=== PATIENT | female | born 1990 | race Hispanic/Latino ===

== ENCOUNTER 2018-10-02 04:08 | Inpatient (IN) | payer OTHER ==
--- OUTSIDE RECORDS SUMMARY | 2018-10-02 04:11 | XMS REPORT | Continuity of Care Document ---
:1990 Author Organization Interface Problems Problem Status Onset Classification Date Comments Source Date Reported Discharge 02/27/2016 [place] Diagnosis: 6 Acute right flank pain URINARY Active [facility] SYMPTOMS 6 [place] Asthma Resolved Problem 02/27/2016 [facility] Medications Medication Details Route Status Patient Ordering Order Source Instructions Provider Date ibuprofen 600 600 mg=1 Active mg oral tablet tab, PO, 016 [place] Q8H, # 30 tab, 0 Refill(s) tramadol 50 mg=1 tab, Active hydrochloride PO, Q6H, X 5 016 [place] 50 MG Oral day, # 15 Tablet tab, 0 Refill(s) potassium 40 mEq, 2 Inactive chloride tab, Route: 016 [place] PO, Drug form: ERTAB, ONCE, Dosing Weight 100, kg, Priority: STAT, Start date: 02/24/16 17:04:00 CDT, Stop date: 02/24/16 17:04:00 CDTNotes: (Same as: K-Dur 20) "Do Not Crush" With food and full glass of water Morphine 4 mg, 1 mL, Inactive Route: IVP, Anitha Lau Drug form: INJ, ONCE, Dosing Weight 100, kg, Priority: STAT, Start date: 02/24/16 15:52:00 CDT, Stop date: 02/24/16 15:52:00 CDTNotes: (Same as:MORPhine Sulfate) Saline Flush 10 mL, Inactive 0.9% Route: IVP, 016 [place] Drug Form: INJ, Dosing Weight 100, kg, PRN, PRN Line Flush, Start date: 02/24/16 15:52:00 CDT, Duration: 30 day, Stop date: 03/25/16 15:51:00 CDTNotes: (Same as: BD Posiflush) Ondansetron 4 mg, 2 mL, Inactive Route: IVP, 016 [place] Drug form: INJ, ONCE, Dosing Weight 100, kg, Priority: STAT, Start date: 02/24/16 15:52:00 CDT, Stop date: 02/24/16 15:52:00 CDTNotes: (Same as: Zofran) MEDICATION WASTE Product Size: 4 mg Product Wasted: ___ mg Allergies, Adverse Reactions, Alerts Substance Category Reaction Severity Reaction Status Date Comments Source type Reported Immunizations Immunization Date Given Site Status Last Updated Comments Source Results Order Name Results Value Reference Date Interpretation Comments Source Range CHEM PANEL Albumin Lvl 3.8 g/dL 3.5 - 5.0 02/23 [facility] CHEM PANEL Alk Phos 78 unit/L 39 - 136 02/23 [facility] CHEM PANEL Sodium Lvl 139 meq/L 135 - 145 02/23 [facility] CHEM PANEL ALANINE 21 unit/L 0 - 65 02/23 AMINOTRANS [facility] RASE CHEM PANEL Total 8.1 g/dL 6.4 - 8.4 02/23 Protein [facility] CHEM PANEL ASPARTATE 12 unit/L 0 - 37 02/23 TRANSAMINASE [facility] CHEM PANEL Bili Total 0.4 mg/dL 0.2 - 1.3 02/23 [facility] CHEM PANEL Glucose Lvl 90 mg/dL 70 - 99 02/23 [facility] CHEM PANEL BUN 5 mg/dL 7 - 22 02/23 [facility] CHEM PANEL Creatinine 0.64 mg/dL 0.50 - 02/23 Lvl 1.40 [facility] CHEM PANEL Calcium Lvl 8.3 mg/dL 8.5 - 10.5 02/23 [facility] CHEM PANEL Potassium 3.3 meq/L 3.5 - 5.1 02/23 Lvl [facility] CHEM PANEL Chloride Lvl 107 meq/L 95 - 109 02/23 [facility] CHEM PANEL CO2 26 meq/L 24 - 32 02/23 [facility] CHEM PANEL eGFR 125 02/23 Result Comment: The eGFR is calculated using the CKD-EPI formula. In most young, healthy individuals the eGFR will be >90 mL/ min/1.73m2. The eGFR declines with age. An eGFR of 60-89 may be normal in [place] mL/min/1. some populations, particularly the elderly, for whom the CKD-EPI formula has not been extensively validated. Use of the eGFR is not recommended in the following populations: [address] Individuals with unstable creatinine concentrations, including patients and those with serious co-morbid conditions. Patients with extremes in muscle mass or diet. The data above are obtained from the National Kidney Disease Education Program (NKDEP) which additionally recommends that when the eGFR is used in patients with extremes of body mass index for purposes of drug dosing, the eGFR should be multiplied by the estimated BMI. CHEM PANEL B/C Ratio 8 6 - 25 02/23 [facility] CHEM PANEL AGAP 9.3 meq/L 10.0 - 02/23 20.0 [facility] CHEM PANEL A/G Ratio 0.9 0.7 - 1.6 02/23 [facility] CHEM PANEL Globulin 4.3 g/dL 2.0 - 4.0 02/23 [facility] ENDOCRINOLO S Preg Negative Negative 02/23 GY [facility] *NA* (02/24/16 4:03 PM) HEMATOLOGY Monocytes 9.6 % 2.0 - 12.0 02/23 [facility] HEMATOLOGY Segs-Bands # 6.6 K/CMM 1.5 - 8.1 02/23 [facility] HEMATOLOGY Basophils 0.2 % 0.0 - 1.0 02/23 [facility] HEMATOLOGY Lymphocytes 1.0 K/CMM 1.0 - 5.5 02/23 # /2015 [facility] HEMATOLOGY Eosinophils 0.3 % 0.0 - 4.0 02/23 [facility] HEMATOLOGY Monocytes # 0.8 K/CMM 0.0 - 0.8 02/23 [facility] HEMATOLOGY Microcyte 1+ None Seen 02/23 [facility] *ABN* (02/24/16 4:03 PM) HEMATOLOGY Lymphocytes 11.5 % 20.0 - 02/23 MH 40.0 [facility] HEMATOLOGY Segs 78.4 % 45.0 - 02/23 MH 75.0 [facility] HEMATOLOGY RBC X 10x6 4.84 M/CMM 4.20 - 07 MH 5.40 [facility] HEMATOLOGY WBC X 10x3 8.5 K/CMM 3.7 - 10.4 02/23 [facility] HEMATOLOGY MCV 75.6 fL 80.0 - 02/23 MH 98.0 [facility] HEMATOLOGY Hct 36.6 % 36.0 - 02/23 MH 48.0 [facility] HEMATOLOGY MCH 23.6 pg 27.0 - 02/23 MH 31.0 [facility] HEMATOLOGY Hgb 11.4 g/dL 12.0 - 02/23 MH 16.0 [facility] HEMATOLOGY MCHC 31.2 g/dL 32.0 - 02/23 MH 36.0 [facility] HEMATOLOGY RDW 15.6 % 11.5 - 02/23 MH 14.5 [facility] HEMATOLOGY MPV 9.4 fL 7.4 - 10.4 02/23 [facility] HEMATOLOGY Platelet 239 K/CMM 133 - 450 02/23 [facility] URINE AND UA WBC 3-5 /HPF None Seen 02/23 STOOL /HPF [facility] URINE AND UA RBC 6-10 /HPF 0 - 2 02/23 [facility] URINE AND UA pH 7.0 5.0 - 8.0 02/23 [facility] URINE AND UA Spec Grav 1.015 <=1.030 02/23 [facility] URINE AND UA Turbidity Clear Clear 02/23 [facility] (02/24/16 4:03 PM) URINE AND UA Color Yellow Yellow 02/23 [facility] *NA* (02/24/16 4:03 PM) URINE AND UA Bacteria Occasional None Seen 02/23 STOOL /HPF /HPF [facility] URINE AND UA Bili Negative Negative 02/23 [facility] *NA* (02/24/16 4:03 PM) URINE AND UA Ketones Negative Negative 02/23 [facility] *NA* (02/24/16 4:03 PM) URINE AND UA Glucose Negative Negative 02/23 [facility] (02/24/16 4:03 PM) URINE AND UA Nitrite Negative Negative 02/23 [facility] (02/24/16 4:03 PM) URINE AND UA Protein Negative Negative 02/23 [facility] (02/24/16 4:03 PM) URINE AND UA Sq Epi Occasional Few /LPF 02/23 STOOL /LPF /2015 [facility] URINE AND UA Leuk Est Small Negative 02/23 STOOL [facility] *ABN* (02/24/16 4:03 PM) URINE AND UA 0.2 EU/dL 0.1 - 1.0 02/23 [facility] Urobilinogen /2015 [facility] URINE AND UA Blood Moderate Negative 02/23 STOOL [facility] *ABN* (02/24/16 4:03 PM) URINE CHEM U Preg Negative Negative 02/23 [facility] (02/24/16 4:03 PM) Renal Stone Renal Stone CT SCAN OF THE ABDOMEN [<AND PELVIS>] WITHOUT CONTRAST. 02/23 [facility] /2015 [facility] HX: Clinical Indication: Flank Pain; right flank, Izaiah LQ pain. Comparison: None Read by: Pato Hawk MD Dictated Date/time: 02/24/16 17:49 Electronically Signed by: Pato Hawk MD 02/24/16 17:51 FINAL REPORT Technique: Helical CT images were obtained from the domes the diaphragms to the symphysis pubis without the administration of oral or intravenous contrast. The lack of IV contrast lowers the sensitivity for diagnostic evaluation. ABDOMEN AND PELVIS: The lung bases are clear. The heart is normal in size. Anemia. Grossly normal gallbladder. The unenhanced liver, spleen, pancreas , and adrenals are normal in appearance. Grossly nor mal appendix. The gastrointestinal structures are unremarkable. No abdominal masses, adenopathy, ascites, or fluid collections are seen. No renal or ureteral calculi or hydronephrosis. No significant perinephric stranding detected. The bladder is nondistended with thickened wall. Prominent uterus. Bilateral L4-L5 pars defect are present. IMPRESSION: 1. No definite obstructive uropathy detected. 2. Grossly normal appendix. SL: [id number] Vital Signs Vital Sign Value Date Comments Source Heart Rate 88 2016 [facility] Systolic (mm Hg) 124 2016 [facility] Diastolic (mm Hg) 86 2016 [facility] Respitory Rate 16 2016 [facility] Temperature Oral (F) 98.4 F 2016 [facility] Systolic (mm Hg) 124 2016 [facility] Diastolic (mm Hg) 80 2016 [facility] Respitory Rate 18 2016 [facility] Heart Rate 88 2016 [facility] Temperature Oral (F) 98.6 F 2016 [facility] Heart Rate 97 2016 [facility] Weight 100 2016 [facility] Temperature Oral (F) 99.5 F 2016 [facility] Respitory Rate 16 2016 [facility] Systolic (mm Hg) 132 2016 [facility] Diastolic (mm Hg) 82 2016 [facility] Encounters Location Location Encounter Encounter Reason Attending ADM DC Status Source Details Type Number For Provider Date Date Visit [facility] [id number] Lydia 02/23 02/23 [facility] [place] /2015 [facility] Procedures Procedure Code Date Perfomer Comments Source
[2018-10-02] MEDS ORDERED: PENICILLIN 5 MU in NA CHLORIDE 0.9% 100 ML IV ONE (04:37)
[2018-10-02] MEDS ORDERED: CARBOPROST TROME 250 MCG/ML IM PRN (04:37)
[2018-10-02] MEDS ORDERED: METHYLERGONOVINE 0.2MG/ML AMP IM PRN (04:37)
[2018-10-02] MEDS ORDERED: PROMETHAZINE 25 MG/ML VIAL IV PRN (04:37)
[2018-10-02] MEDS ORDERED: Ringers Lactate 1,000 ML IV PRN (04:37)
[2018-10-02] MEDS ORDERED: OXYTOCIN/LR 20 UNITS/1,000 ML BAG IV SCH (05:00)
[2018-10-02] MEDS ORDERED: Ringers Lactate 1,000 ML IV SCH (05:00)
[2018-10-02] MEDS ORDERED: PENICILLIN 2.5 MU in NA CHLORIDE 0.9% 100 ML IV SCH (05:00)
[2018-10-02 05:02] LABS: RPR Titer ND
[2018-10-02 05:05] LABS: Absolute Lymphocytes (CBC) 1.8 K/uL (0.7-4.9); Absolute Monocytes 0.7 K/uL (0.1-1.3); Absolute Neutrophil 5.1 K/uL (1.8-8.0); Basophils % 0.2 % (0-1.3); Eosinophils % 0.8 % (0-4.4); Hematocrit 33.1 % (36.0-45.0); Lymphocytes % 23.9 % (15.3-44.8); MPV 11.8 fL (7.6-11.3); Monocytes % 9.1 % (3.3-12.3); RBC Red Blood Cell Count 4.11 M/uL (3.86-4.86)
[2018-10-02 05:07] LABS: Urine Appearance CLOUDY; Urine Bilirubin NEGATIVE (NEG); Urine Blood NEGATIVE (NEG); Urine Color YELLOW; Urine Glucose NEGATIVE (NEG); Urine Microscopic Reflex ORDER UMIC; Urine Protein NEGATIVE (NEG); Urine pH 5.5 (5.0-7.0)
[2018-10-02 05:22] LABS: Urine Bacteria >50 /HPF (<20); Urine Culture Reflex Order NOT NEEDED; Urine RBC NONE SEEN /HPF (NONE SEEN)
[2018-10-02 05:23] VITALS: BMI 36.6
[2018-10-02] MEDS ORDERED: INFLUENZA VACCINE (for 3y+) 0.5 ML DOSE IMVAC ONE (08:00)
--- NOTE | 2018-10-02 08:41 | RAD REPORT ---
EXAM DESCRIPTION: US - OB Limited - 10/02/2018 7:38 am CLINICAL HISTORY: presentation age. COMPARISON: OB Complete dated 07/26/2018 FINDINGS: Examination was limited to presentation per referring physician request. A single cephalic presenting gestation is identified.
--- NOTE | 2018-10-02 09:23 | PREOPHP ---
Date of Admission: 10/02/2018 Ms. Shen is a 28-year-old 3, para 2, 39 weeks, for induction. Full pros and cons of this dis cussed prior to admission. She is Rh positive, immune to Rubella, positive beta strep screen, has be en started on antibiotics. However, on pelvic exam this morning, I cannot tell the position of the b hillary and it is extremely high. I have a feeling that baby could be breech. We have stopped Pitocin a nd will get an immediate imaging either x-ray or ultrasound to determine position of the baby. If th e baby is breech, this has already been discussed with the patient that either we will send her home and wait to see if spontaneous rotation occurs or proceed with or talk about transfer to an other facility for rotation attempt. Full discussion. Apparently, no exam has been done prior to th is point even though Pitocin was started. LUANN/TAYLOR Voice ID: [id number]
[2018-10-02] MEDS ORDERED: FENTANYL CITR 100 MCG/2 ML IV ONE (09:51)
[2018-10-02] MEDS ORDERED: ROPIVACAINE HCL 100 ML IV PRN (09:51)
[2018-10-02] MEDS ORDERED: ROPIVACAINE HCL 2 MG/ML 100ML IV ONE (09:53)
[2018-10-02] MEDS ORDERED: ROPIVACAINE HCL 20 ML ONE (10:12)
[2018-10-02 11:28] LABS: Barbiturates NEGATIVE (NEGATIVE); Benzodiazepines NEGATIVE (NEGATIVE); Cocaine NEGATIVE (NEGATIVE); METHAMPHETAM NEGATIVE (NEGATIVE); Methadone NEGATIVE (NEGATIVE); Opiates NEGATIVE (NEGATIVE); Phencyclidine NEGATIVE (NEGATIVE); THC Cannibis NEGATIVE (NEGATIVE)
[2018-10-02] MEDS ORDERED: ACETAMINOPHEN 500 MG TAB PO PRN (13:28)
[2018-10-02] MEDS ORDERED: Tdap (Diph,Pertuss(Acell),Tet Vac) 0.5 ML SYR IMVAC ONE (13:28)
[2018-10-02] MEDS ORDERED: DOCUSATE NA/SENNA CONC 1 TAB PO PRN (13:28)
[2018-10-02] MEDS ORDERED: Oxycodone HCl/Acetaminophen 1 TAB TAB PO PRN (13:28)
[2018-10-02] MEDS ORDERED: IBUPROFEN 200 MG TAB PO PRN (13:28)
[2018-10-02] MEDS ORDERED: ONDANSETRON 4 MG (ODT) TAB PO PRN (13:28)
[2018-10-02] MEDS: Oxycodone HCl/Acetaminophen 1 TAB TAB PO PRN ×2 (17:03→23:50)
--- NOTE | 2018-10-02 23:32 | OP ---
Surgeon: Lukas Yeager MD Hospital Course: A 28-year-old 3, para 2, 39 weeks, followed antepartum, noted to have galls tones, also was positive for beta strep. On admission, it was very high. Ultrasound demonstrated ba by was vertex. On re-examination 15 to 20 minutes later, baby was lower, rupture of membranes, clear fluid. The patient went into an active labor pattern. Subsequently, requested and received epidura l, which gave excellent benefit during remainder of labor and delivery. Second stage of 15 to 20 min utes. Spontaneous vaginal delivery of an estimated [id number] male . Apgars 9 and 9. A jaida e knot in the cord, but not tight. Germain delivery of the placenta, which was inspected and noted t o be intact and normal. First-degree laceration repair with 2-0 chromic. Mild uterine hypotonus, 0. 2 mg of Methergine, massage and IV drip Pitocin. Estimated blood loss 400, possibly 450 cc or less. Penicillin prophylaxis times at least twice during the labor. The patient tolerated all procedures well. Final Diagnoses: 1.Term intrauterine at 39 weeks. 2.Vaginal delivery. 3.True knot in the cord. 4.Epidural anesthesia. 5.Penicillin prophylaxis. 6.Mild hypotonus. NBC/MODL Voice ID: [id number] Report ID: [id number]
[2018-10-03 04:14] LABS: RPR (Rapid Plasma Reagin) NON-REACT (NON-REACT)
[2018-10-03] MEDS: Oxycodone HCl/Acetaminophen 1 TAB TAB PO PRN ×2 (06:08→11:05)
[2018-10-03] MEDS ORDERED: DIPHENHYDRAMINE 25 MG TAB/CAP PO PRN (07:19)
[2018-10-03] MEDS ORDERED: Tdap (Diph,Pertuss(Acell),Tet Vac) 0.5 ML SYR IMVAC ONE (07:21)
[2018-10-03 11:26] VITALS: BP 130/75; TEMP 98.2
--- NOTE | 2018-10-06 15:39 | PN ---
The patient's ultrasound shows baby vertex. On re-exam, baby is indeed vertex. She is good 3 and lucio f to 4 cm. Baby is better applied to the cervix than it was on my first exam. With fundal pressure, rupture of the membranes was performed and we let the fluid drain out with finger in place to assure baby was applied to the cervix until the baby was well applied. Clear fluid. FHTs normal, reactive. Anticipate more rapid progress from this point forward. LUANN/TAYLOR Voice ID: [id number] Report ID: [id number]
--- NOTE | 2018-10-06 15:51 | DS ---
Date of Discharge: 10/03/2018 Hospital Course: A 28-year-old female, 3, para 2, 39 weeks, delivered uneventfully of a 7-po und 13-ounces male infant, Apgars 9 and 9. Small first-degree laceration repaired with 2-0 chromic. Epidural anesthesia, which gave excellent benefit. Germain delivery of the placenta, which was insp ected and noted to be intact and normal. Mild uterine hypotonus; 0.2 mg of Methergine IM, IV drip Pi tocin and massage. Estimated blood loss 400 cc. Rh positive, immune to Rubella. Positive beta stre p screen. The patient received penicillin prophylaxis during the labor. afebrile, ambula ting and voiding. Lochia is normal. Will be dismissed later today. To report back to my office in 6 weeks for followup. To report any temperature elevation of 100 degrees or greater, severe pain, he titi bleeding, or any other type of abnormalities. Has some mild pruritus, for which she will be give n Benadryl. This is no doubt result of the epidural. No other problems reported. She has not had h er Tdap immunization. Has agreed to get this before she leaves. Dismissed with tramadol for analges ia, although she may elect to take Motrin instead. Will be . Final Diagnoses: 1.Term intrauterine . 2.Vaginal delivery. 3.Epidural anesthesia. 4.Mild uterine hypertonicity. 5.True knot in the cord, loose. 6.Penicillin prophylaxis. 7.Tdap offered. LUANN/TAYLOR Voice ID: [id number] Report ID: [id number]
[2018-10-07 03:12] LABS: HBsAG Nonreactive (Nonreactive)
== END 2018-10-03 14:30 | disposition home or self-care (01) | DRG 807 ==
LOC: 2ND-WC 04:08
PROVIDERS: ADMIT Specialist; ATTEND Specialist
PROC: 10E0XZZ Delivery of Products of Conception, External Approach (ICD-10-PCS; principal; 2018-10-02)
PROC: 10907ZC Drainage of Amniotic Fluid, Therapeutic from Products of Conception, Via Natural or Artificial Opening (ICD-10-PCS; 2018-10-02)
DX: O99.824 Streptococcus B carrier state complicating childbirth (principal); Z37.0 Single live birth; O69.2XX0 Labor and delivery complicated by other cord entanglement, with compression, not applicable or unspecified; O70.0 First degree perineal laceration during delivery; O62.0 Primary inadequate contractions; O99.62 Diseases of the digestive system complicating childbirth; K80.20 Calculus of gallbladder without cholecystitis without obstruction; O99.72 Diseases of the skin and subcutaneous tissue complicating childbirth; Z3A.39 39 weeks gestation of pregnancy
CPT/HCPCS: 36415; 76815; 80307; 81003; 81015; 85025; 86592; 86850; 86900; 86901; 87340; 90715; J2210; J2590; J2795; J3010

== ENCOUNTER 2019-02-14 12:49 | Emergency (ER) | payer OTHER, SELFPAY ==
--- OUTSIDE RECORDS SUMMARY | 2019-02-14 12:52 | XMS REPORT | Continuity of Care Document ---
:1990 Author Organization [facility] Care Team Providers Name Role Phone E-Generator Information [employer] Unavailable Unavailable Problems Problem Status Onset Classification Date Comments Source Date Reported Discharge 02/27/2016 [place] Diagnosis: 6 Acute right flank pain URINARY Active [facility] SYMPTOMS 6 [place] Asthma Resolved Problem 02/27/2016 [place] Medications Medication Details Route Status Patient Ordering Order Source Instructions Provider Date ibuprofen 600 600 mg=1 Active mg oral tablet tab, PO, 016 [place] Q8H, # 30 tab, 0 Refill(s) tramadol 50 mg=1 tab, Active hydrochloride PO, Q6H, X 5 016 [place] 50 MG Oral day, # 15 Tablet tab, 0 Refill(s) potassium 40 mEq, 2 Inactive chloride tab, Route: 016 [place] PO, Drug form: ERTAB, ONCE, Dosing Weight 100, kg, Priority: STAT, Start date: 02/24/16 17:04:00 CDT, Stop date: 02/24/16 17:04:00 CDTNotes: (Same as: K-Dur 20) "Do Not Crush" With food and full glass of water Morphine 4 mg, 1 mL, Inactive Route: IVP, Anitha [place] Drug form: INJ, ONCE, Dosing Weight 100, kg, Priority: STAT, Start date: 02/24/16 15:52:00 CDT, Stop date: 02/24/16 15:52:00 CDTNotes: (Same as:MORPhine Sulfate) Saline Flush 10 mL, Inactive 0.9% Route: IVP, 016 [place] Drug Form: INJ, Dosing Weight 100, kg, PRN, PRN Line Flush, Start date: 02/24/16 15:52:00 CDT, Duration: 30 day, Stop date: 03/25/16 15:51:00 CDTNotes: (Same as: BD Posiflush) Ondansetron 4 mg, 2 mL, Inactive Route: IVP, 016 [place] Drug form: INJ, ONCE, Dosing Weight 100, kg, Priority: STAT, Start date: 02/24/16 15:52:00 CDT, Stop date: 02/24/16 15:52:00 CDTNotes: (Same as: Zofran) MEDICATION WASTE Product Size: 4 mg Product Wasted: ___ mg Allergies, Adverse Reactions, Alerts No Known Medication Allergies Immunizations No Data Provided for This Section Results Order Name Results Value Reference Date Interpretation Comments Source Range CHEM PANEL Albumin Lvl 3.8 3.5 - 5.0 02/23 [place] CHEM PANEL Alk Phos 78 39 - 136 02/23 [place] CHEM PANEL Sodium Lvl 139 135 - 145 02/23 [place] CHEM PANEL ALANINE 21 0 - 65 02/23 AMINOTRANS [place] RASE CHEM PANEL Total 8.1 6.4 - 8.4 02/23 Protein [place] CHEM PANEL ASPARTATE 12 0 - 37 02/23 TRANSAMINASE [place] CHEM PANEL Bili Total 0.4 0.2 - 1.3 02/23 [place] CHEM PANEL Glucose Lvl 90 70 - 99 02/23 [place] CHEM PANEL BUN 5 7 - 22 02/23 [place] CHEM PANEL Creatinine 0.64 0.50 - 02/23 MH Lvl 1.40 [place] CHEM PANEL Calcium Lvl 8.3 8.5 - 10.5 02/23 [place] CHEM PANEL Potassium 3.3 3.5 - 5.1 02/23 MH Lvl [place] CHEM PANEL Chloride Lvl 107 95 - 109 02/23 [place] CHEM PANEL CO2 26 24 - 32 02/23 [place] CHEM PANEL eGFR 125 02/23 [facility] Comment: The [place] eGFR is calculated using the CKD-EPI formula. In most young, healthy individuals the eGFR will be >90 mL/min/1.73m2 . The eGFR declines with age. An eGFR of 60-89 may be normal in some populations, particularly the elderly, for whom the CKD-EPI formula has not been extensively validated. Use of the eGFR is not recommended in the following populations:< br/>
Amarilis viduals with unstable creatinine concentration s, including patients and those with serious co-morbid conditions.<b r/>
Patie nts with extremes in muscle mass or diet.

The data above are obtained from the National Kidney Disease Education Program (NKDEP) which additionally recommends that when the eGFR is used in patients with extremes of body mass index for purposes of drug dosing, the eGFR should be multiplied by the estimated BMI. CHEM PANEL B/C Ratio 8 6 - 25 02/23 [place] CHEM PANEL AGAP 9.3 10.0 - 02/23 MH 20.0 [place] CHEM PANEL A/G Ratio 0.9 0.7 - 1.6 02/23 [place] CHEM PANEL Globulin 4.3 2.0 - 4.0 02/23 [place] ENDOCRINOLO S Preg Negative Negative 02/23 GY *NA* /2015 [place] (02/24/16 4:03 PM) HEMATOLOGY Monocytes 9.6 2.0 - 12.0 02/23 [place] HEMATOLOGY Segs-Bands # 6.6 1.5 - 8.1 02/23 [place] HEMATOLOGY Basophils 0.2 0.0 - 1.0 02/23 [place] HEMATOLOGY Lymphocytes 1.0 1.0 - 5.5 02/23 MH # /2015 [place] HEMATOLOGY Eosinophils 0.3 0.0 - 4.0 02/23 [place] HEMATOLOGY Monocytes # 0.8 0.0 - 0.8 02/23 [place] HEMATOLOGY Microcyte 1+ None Seen 02/23 [facility] *ABN* /2015 [place] (02/24/16 4:03 PM) HEMATOLOGY Lymphocytes 11.5 20.0 - 02/23 MH 40.0 [place] HEMATOLOGY Segs 78.4 45.0 - 02/23 MH 75.0 [place] HEMATOLOGY RBC X 10x6 4.84 4.20 - 02/23 MH 5.40 [place] HEMATOLOGY WBC X 10x3 8.5 3.7 - 10.4 02/23 [place] HEMATOLOGY MCV 75.6 80.0 - 02/23 MH 98.0 [place] HEMATOLOGY Hct 36.6 36.0 - 02/23 MH 48.0 /2015 [place] HEMATOLOGY MCH 23.6 27.0 - 02/23 MH 31.0 /2015 [place] HEMATOLOGY Hgb 11.4 12.0 - 02/23 MH 16.0 [place] HEMATOLOGY MCHC 31.2 32.0 - 02/23 MH 36.0 /2015 [place] HEMATOLOGY RDW 15.6 11.5 - 02/23 MH 14.5 /2015 [place] HEMATOLOGY MPV 9.4 7.4 - 10.4 02/23 [place] HEMATOLOGY Platelet 239 133 - 450 02/23 [place] URINE AND UA WBC 3-5 /HPF None Seen 02/23 STOOL /HPF /2015 [place] URINE AND UA RBC 6-10 /HPF 0 - 2 02/23 STOOL [place] URINE AND UA pH 7.0 5.0 - 8.0 02/23 STOOL /2015 [place] URINE AND UA Spec Grav 1.015 <=1.030 02/23 STOOL [place] URINE AND UA Turbidity Clear Clear 02/23 [facility] (02/24/16 4:03 PM) [place] URINE AND UA Color Yellow Yellow 02/23 STO[facility] *NA* /2015 [place] (02/24/16 4:03 PM) URINE AND UA Bacteria Occasional None Seen 02/23 STOOL /HPF /HPF [place] URINE AND UA Bili Negative Negative 02/23 STOOL *NA* /2015 [place] (02/24/16 4:03 PM) URINE AND UA Ketones Negative Negative 02/23 STO[facility] *NA* /2015 [place] (02/24/16 4:03 PM) URINE AND UA Glucose Negative Negative 02/23 [facility] (02/24/16 4:03 PM) [place] URINE AND UA Nitrite Negative Negative 02/23 [facility] (02/24/16 4:03 PM) [place] URINE AND UA Protein Negative Negative 02/23 [facility] (02/24/16 4:03 PM) [place] URINE AND UA Sq Epi Occasional Few /LPF 02/23 STOOL /LPF /2015 [place] URINE AND UA Leuk Est Small Negative 02/23 STO[facility] *ABN* /2015 [place] (02/24/16 4:03 PM) URINE AND UA 0.2 0.1 - 1.0 02/23 [facility] Urobilinogen /2015 [place] URINE AND UA Blood Moderate Negative 02/23 STO[facility] *ABN* /2015 [place] (02/24/16 4:03 PM) URINE CHEM U Preg Negative Negative 02/23 (02/24/16 4:03 PM) [place] Pathology Reports No Data Provided for This Section Diagnostic Reports Report Value Date Source Renal Stone CT CT SCAN OF THE ABDOMEN [<AND PELVIS>] WITHOUT CONTRAST. 2015 [facility] HX: Clinical Indication: Flank Pain; right flank, Izaiah LQ pain. Comparison: None Technique: Helical CT images were obtained from the domes the diaphragms to the symphysis pubis without the administration of oral or intravenous contrast. The lack of IV contrast lowers the sensitivity for diagnostic evaluation. ABDOMEN AND PELVIS: The lung bases are clear. The heart is normal in size. Anemia. Grossly normal gallbladder. The unenhanced liver, spleen, pancreas, and adrenals are normal in appearance. Grossly [...] uropathy detected. 2. Grossly normal appendix. SL: [id number] Consultation Notes No Data Provided for This Section Discharge Summaries No Data Provided for This Section History and Physicals No Data Provided for This Section Vital Signs Vital Sign Value Date Comments Source Heart Rate 88 2016 [facility] Systolic (mm Hg) 124 2016 [facility] Diastolic (mm Hg) 86 2016 [facility] Respitory Rate 16 2016 [facility] Temperature Oral (F) 98.4 F 2016 [facility] Systolic (mm Hg) 124 2016 [facility] Diastolic (mm Hg) 80 2016 [facility] Respitory Rate 18 2016 [facility] Heart Rate 88 2016 [facility] Temperature Oral (F) 98.6 F 2016 [facility] Heart Rate 97 2016 [facility] Weight 100 2016 [facility] Temperature Oral (F) 99.5 F 2016 [facility] Respitory Rate 16 2016 [facility] Systolic (mm Hg) 132 2016 [facility] Diastolic (mm Hg) 82 2016 [facility] Encounters Location Location Encounter Encounter Reason Attending ADM DC Status Source Details Type Number For Provider Date Date Visit [facility] [id number] Lydia 02/23 02/23 [place] [facility] [place] /2015 [facility] Procedures No Data Provided for This Section Assessment and Plan No Data Provided for This Section Plan of Care No Data Provided for This Section Social History Social History Date Source Social History TypeResponse 2016 [facility] Smoking Status Current every day smoker; Exposure to Tobacco Smoke None; Cigarette Smoking Last 365 Days Yes; Reg Smoking Cessation Counseling Yes Family History No Data Provided for This Section Advance Directives No Data Provided for This Section Functional Status No Data Provided for This Section
[2019-02-14 13:41] LABS: Absolute Lymphocytes (CBC) 0.9 K/uL (0.7-4.9); Basophils % 0.4 % (0-1.3); Eosinophils % 0.4 % (0-4.4); Hematocrit 37.3 % (36.0-45.0); Lymphocytes % 11.6 % (15.3-44.8); MPV 9.7 fL (7.6-11.3); Monocytes % 10.8 % (3.3-12.3); RBC Red Blood Cell Count 4.88 M/uL (3.86-4.86)
[2019-02-14 13:57] LABS: BUN Blood Urea Nitrogen 8 mg/dL (7-18); Bicarbonate 23 mmol/L (21-32); Glucose Level 100 mg/dL (74-106); Potassium 3.7 mmol/L (3.5-5.1); Sodium Level 138 mmol/L (136-145)
--- NOTE | 2019-02-14 14:45 | RAD REPORT ---
EXAM DESCRIPTION: US - Transvaginal Study Probe - 02/14/2019 2:29 pm CLINICAL HISTORY: N Pelvic pain. COMPARISON: No comparisons FINDINGS: The uterus is normal in size, shape and echotexture. The uterus measures 8.0 x 5.7 x 5.8 c m. IUD is present in the endometrial canal however appears low in position at the level the midbody. Both ovaries are normal in size, shape and echotexture. The right ovary measures 3.2 x 2.5 x 1.9 cm. The left ovary measures 2.8 x 1.3 x 1.0 cm. No ovarian or parovarian lesions. No adnexal masses. Normal Doppler blood flow was demonstrated to both ovaries. No significant pelvic ascites. IMPRESSION: IUD appears low in position within the endometrial canal.
[2019-02-14] MEDS ORDERED: HYDROCODONE/APAP 5/325 MG TAB ONE (15:47)
--- NOTE | 2019-02-14 16:47 | EDPHYS ---
Physician Documentation [facility] Name: Paige Shen Age: 28 yrs Sex: Female : 1990 Arrival Date: 02/14/2019 Time: 12:52 Bed 24 Private MD: ED Physician Gonzalez Leonard HPI: 02/14 13:07 This 28 yrs old Female presents to ER via Ambulatory with complaints of jmm Vaginal Bleeding. 13:07 Onset: The symptoms/episode began/occurred gradually, 3 month(s) ago. Modifying jmm factors: The symptoms are alleviated by nothing, the symptoms are aggravated by nothing. Associated signs and symptoms: Pertinent positives: pelvic pain, Pertinent negatives: fever. This is a 28 year old female with no chronic medical conditions that presents to the ED with complaints of vaginal spotting over the past 3 months since IUD placement. Patient states she developed blood clots today with pelvic pain. Denies fever, denies vaginal discharge. . 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 - Social history:: Smoking status: Patient/guardian denies using tobacco. - Ebola Screening: : Patient negative for fever greater than or equal to 101.5 degrees Fahrenheit, and additional compatible Ebola Virus Disease symptoms Patient denies exposure to infectious person Patient denies travel to an Ebola-affected area in the 21 days before illness onset No symptoms or risks identified at this time. ROS: 13:07 Constitutional: Negative for fever, chills, and weight loss, Cardiovascular: Negative jmm for chest pain, palpitations, and edema, Respiratory: Negative for shortness of breath, cough, wheezing, and pleuritic chest pain. 13:07 : Positive for vaginal bleeding, pelvic pain. 13:07 All other systems are negative. Exam: 13:07 Constitutional: This is a well developed, well nourished patient who is awake, alert, jmm and in no acute distress. Head/Face: atraumatic. Eyes: EOMI, no conjunctival erythema appreciated ENT: Moist Mucus Membranes Neck: Trachea midline, Supple Chest/axilla: Normal chest wall appearance and motion. Cardiovascular: Regular rate and rhythm. No edema appreciated Respiratory: Normal respirations, no respiratory distress appreciated Abdomen/GI: Non distended, soft 13:07 Skin: General appearance color normal MS/ Extremity: Moves all extremities, no obvious deformities appreciated, no edema noted to the lower extremities Neuro: Awake and alert, normal gait Psych: Behavior is normal, Mood is normal, Patient is cooperative and pleasant 13:07 : Pelvic Exam: External exam: is normal, Speculum exam: mild bleeding, os that is closed. Vital Signs: 12:56 BP 127 / 77; Pulse 88; Resp 16; Temp 98.7(TE); Pulse Ox 100% ; Weight 81.65 kg; Height hj 5 ft. 4 in. (162.56 cm); Pain 9/10; 15:40 BP 113 / 76; Pulse 65; Resp 16; Pulse Ox 98% on R/A; Pain 7/10; iw 12:56 Body Mass Index 30.90 (81.65 kg, 162.56 cm) hj MDM: 13:28 Patient medically screened. [facility] 16:36 Data reviewed: vital signs, nurses notes. Counseling: I had a detailed discussion with [facility] the patient and/or guardian regarding: the historical points, exam findings, and any diagnostic results supporting the discharge/admit diagnosis, radiology results, the need for outpatient follow up, to return to the emergency department if symptoms worsen or persist or if there are any questions or concerns that arise at home. 16:36 ED course: IUD string noted. Minimal bleeding appreciated. Patient is advised to follow [facility] up with ob for further evaluation. Patient was otherwise given strict return precautions. Patient understood and agrees with the plan of care. . 02/14 13:07 Order name: Abo/rh Typing; Complete Time: 15:38 02/14 13:07 Order name: Basic Metabolic Panel; Complete Time: 14:11 02/14 13:07 Order name: CBC with Diff; Complete Time: 14:11 02/14 15:48 Order name: GC (GONORR/CHLAMYDIA) Probe [facility] 02/14 15:48 Order name: Wet Prep [facility] 02/14 13:07 Order name: IV Saline Lock; Complete Time: 14:04 02/14 13:07 Order name: Labs collected and sent; Complete Time: 14:04 02/14 13:07 Order name: NPO; Complete Time: 14:04 02/14 13:07 Order name: Urine Dipstick-Ancillary (obtain specimen); Complete Time: 15:44 02/14 14:14 Order name: Transvaginal Study Probe; Complete Time: 16:04 [facility] 02/14 15:47 Order name: Pelvic Exam Setup; Complete Time: 16:39 [facility] Administered Medications: 15:41 Drug: Cotuit 5 mg-325 mg 1 tabs Route: PO; Disposition: 02/15 07:23 Co-signature as Attending Physician, Gonzalez Leonard MD I agree with the assessment and kdr plan of care. Disposition: 02/14/19 16:38 Discharged to Home. Impression: Abnormal uterine and vaginal bleeding, unspecified. - Condition is Stable. - Discharge Instructions: Abnormal Uterine Bleeding. - Prescriptions for Ultracet 37.5- 325 mg Oral Tablet - take 1 tablet by ORAL route every 6 hours - for up to 5 days; do not exceed 8 tablets per day.; 12 tablet. - Medication Reconciliation Form, Thank You Letter, Antibiotic Education, Prescription Opioid Use form. - Follow up: Lukas Yaeger MD; When: 1 - 2 days; Reason: Recheck today's complaints, Continuance of care, Re-evaluation by your physician. Signatures: Dispatcher [employer] [facility] Gonzalez Leonard MD MD [facility] Gerry Perkins PA PA [facility] Ashlie Mckeon, RN RN Rod Ram RN RN Corrections: (The following items were deleted from the chart) 02/14 13:57 13:50 Pelvis Complete+US.RAD.BRZ ordered. [facility] 14:14 13:57 Transvaginal Study Probe ordered. [facility] 17:03 16:38 02/14/2019 16:38 Discharged to Home. Impression: Abnormal uterine and vaginal iw bleeding, unspecified. Condition is Stable. Forms are Medication Reconciliation Form, Thank You Letter, Antibiotic Education, Prescription Opioid Use. Follow up: Lukas Yeager; When: 1 - 2 days; Reason: Recheck today's complaints, Continuance of care, Re-evaluation by your physician. [facility]
--- NOTE | 2019-02-14 16:47 | ER ---
Nurse's Notes [facility] Name: Paige Shen Age: 28 yrs Sex: Female : 1990 Arrival Date: 02/14/2019 Time: 12:52 Bed 24 Private MD: Diagnosis: Abnormal uterine and vaginal bleeding, unspecified Presentation: 02/14 12:53 Presenting complaint: Patient states: ig ot the IUD put in last November 20 this year, the hj bleeding never stop and gave me control pill to stop the bleeding and it never stop and now my lower abd is hurting; denies fever and chills; reports spotting vaginal bleeding with clots;. Transition of care: patient was not received from another setting of care. Onset of symptoms was February 14, 2019. Risk Assessment: Do you want to hurt yourself or someone else? Patient reports no desire to harm self or others. Initial Sepsis Screen: Does the patient meet any 2 criteria? No. Patient's initial sepsis screen is negative. Does the patient have a suspected source of infection? No. Patient's initial sepsis screen is negative. Care prior to arrival: None. 12:53 Method Of Arrival: Ambulatory 12:53 Acuity: MIKA 3 hj Triage Assessment: 17:00 General: Appears in no apparent distress. iw 17:00 General: Behavior is calm, cooperative. 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 - Social history:: Smoking status: Patient/guardian denies using tobacco. - Ebola Screening: : Patient negative for fever greater than or equal to 101.5 degrees Fahrenheit, and additional compatible Ebola Virus Disease symptoms Patient denies exposure to infectious person Patient denies travel to an Ebola-affected area in the 21 days before illness onset No symptoms or risks identified at this time. Screenin:00 Fall Risk None identified. iw 15:54 Abuse screen: Denies threats or abuse. Denies injuries from another. Nutritional iw screening: No deficits noted. Tuberculosis screening: No symptoms or risk factors identified. Assessment: 15:00 General: Appears in no apparent distress. Behavior is calm, cooperative. Neuro: Level iw of Consciousness is awake, alert, obeys commands, Moves all extremities. Cardiovascular: Patient's skin is warm and dry. Respiratory: Respiratory effort is even, unlabored. : Urine is clear, Reports vaginal bleeding that is spotty. Derm: Skin is intact, is healthy with good turgor. Musculoskeletal: Range of motion: intact in all extremities. 15:40 Reassessment: Patient appears in no apparent distress at this time. Patient and/or iw family updated on plan of care and expected duration. Pain level reassessed. Patient is alert, oriented x 3, equal unlabored respirations, skin warm/dry/pink. pt requesting pain medicine at this time, Gerry notified, new orders given. 16:41 Reassessment: Patient appears in no apparent distress at this time. Patient and/or iw family updated on plan of care and expected duration. Pain level reassessed. Patient is alert, oriented x 3, equal unlabored respirations, skin warm/dry/pink. Pain: Complains of pain in pelvis. Vital Signs: 12:56 BP 127 / 77; Pulse 88; Resp 16; Temp 98.7(TE); Pulse Ox 100% ; Weight 81.65 kg; Height hj 5 ft. 4 in. (162.56 cm); Pain 9/10; 15:40 BP 113 / 76; Pulse 65; Resp 16; Pulse Ox 98% on R/A; Pain 7/10; iw 12:56 Body Mass Index 30.90 (81.65 kg, 162.56 cm) ED Course: 12:52 Patient arrived in ED. mr 12:56 Triage completed. hj 12:56 Arm band placed on left wrist. hj 13:07 Ashlie Mckeon, RN is Primary Nurse. 13:16 Gerry Perkins PA is PHCP. [facility] 13:16 Gonzalez Leonard MD is Attending Physician. jmm 14:50 Initial lab(s) drawn, by me, sent to lab. Inserted saline lock: 22 gauge in right iw antecubital area, using aseptic technique. 15:00 Patient has correct armband on for positive identification. iw 15:34 Transvaginal Study Probe In Process Unspecified. EDMS 15:46 Urine collected: clean catch specimen, clear, kwabena colored. Patient maintains SpO2 jp3 saturation greater than 95% on room air. 16:37 Toy, Lukas, MD is Referral Physician. [facility] 16:40 Assist provider with pelvic exam: Set up pelvic tray. Performed by Gonzalez Leonard MD iw Specimens sent to lab. Patient tolerated well. 17:02 IV discontinued, intact, bleeding controlled, No redness/swelling at site. Pressure iw dressing applied. Administered Medications: 15:41 Drug: Jefferson 5 mg-325 mg 1 tabs Route: PO; iw Outcome: 16:38 Discharge ordered by . [facility] 17:02 Discharged to home ambulatory. iw 17:02 Condition: good 17:02 Discharge instructions given to patient, Instructed on discharge instructions, follow up and referral plans. medication usage, Demonstrated understanding of instructions, follow-up care, medications, Prescriptions given X 1. 17:03 Patient left the ED. iw Signatures: Dispatcher [employer] EDMS Gerry Prekins PA PA Chanell Diane Irene, RN RN Rod Ram RN RN David Espinosa jp3 Corrections: (The following items were deleted from the chart) 12:57 12:56 Pulse 88bpm; Resp 16bpm; Pulse Ox 100%; Temp 98.7F Temporal; 81.65 kg; Height 5 hj ft. 4 in.; BMI: 30.9; Pain 9/10; hj 14:14 14:11 In radiology for Transvaginal Study Probe. EDMS EDMS
[2019-02-14 17:18] VITALS: TEMP 98.7
[2019-02-14 17:19] VITALS: BP 113/76; O2SAT 98
[2019-02-18 01:58] LABS: C.trachomatis RNA,TMA Not Detected (Not Detected)
== END 2019-02-14 17:03 | disposition home or self-care (01) ==
LOC: ER 12:49
DX: N93.9 Abnormal uterine and vaginal bleeding, unspecified (principal)
CPT/HCPCS: 36415; 76830; 80048; 85025; 86900; 86901; 87210; 87490; 87590; 99284